=== PATIENT | male | born 1990 | race Asian ===

== ENCOUNTER 2020-04-06 11:14 | Emergency (ER) | payer BC ==
[~2020-04-06] VITALS: Ht 170.2 cm; Wt 83.9 kg
--- NOTE | 2020-04-06 11:24 | NUR ---
Placed in room 3 . Placed on bus monitor, blood pressure machine and pulse oximeter. To gown for exam. Side rails up.
[2020-04-06 11:26] VITALS: BP_SYST 123
--- NOTE | 2020-04-06 11:30 | NUR ---
Jose rodriguez in [facility] - 04/06/20 at 1133 by KLAUDIA BESSY done and given to
--- NOTE | 2020-04-06 11:32 | NUR ---
EKG done and given to
--- NOTE | 2020-04-06 11:33 | NUR ---
ER at bedside examining patient.
--- NOTE | 2020-04-06 11:48 | NUR ---
# 18 gauge angiocath placed to LAC. Use of asceptic technique. Opsite placed over site. Blood return noted. Blood for lab drawn from site. Flushed with 10 cc of normal saline. No evidence of infiltration noted. Patient tolerated well.
--- NOTE | 2020-04-06 11:48 | NUR ---
Patient transported to radiology via gurney, accompanied by x-ray tech.
[2020-04-06 11:58] LABS: EOSINOPHILS % (AUTO) 1.2 % (0.0-4.0); HEMATOCRIT 43.7 % (36-54); HEMOGLOBIN 15.1 g/dL (14.0-18.0); LYMPHOCYTES % (AUTO) 31.6 % (20.5-51.5); MEAN CORPUSCULAR HEMOGLOBIN 31 pg (27-31); MEAN CORPUSCULAR HGB CONC 35 % (32-36); MEAN CORPUSCULAR VOLUME 91 fL (79.0-98.0); MONOCYTES % (AUTO) 6.9 % (1.7-9.3); NEUTROPHILS # (AUTO) 3.3 K/uL (1.8-7.7); NEUTROPHILS % (AUTO) 59.3 % (40.0-70.0); PLATELET COUNT (AUTO) 184 K/uL (130-430); RED BLOOD CELL COUNT(AUTO) 4.83 MIL/uL (4.2-6.2); RED CELL DISTRIBUTION WIDTH 13.3 % (9.0-15.0); WHITE BLOOD COUNT (AUTO) 5.6 K/uL (4.8-10.8)
[2020-04-06 11:59] LABS: BASOPHILS # (AUTO) 0.1 K/uL (0.0-0.2); EOSINOPHILS # (AUTO) 0.1 K/uL (0.0-0.4); LYMPHOCYTES # (AUTO) 1.8 K/uL (1.0-5.5); MONOCYTES # (AUTO) 0.4 K/uL (0.0-1.0)
[2020-04-06 12:11] LABS: CALCIUM 9.4 mg/dL (8.4-11.0); CREATININE 1.01 mg/dL (0.55-1.30)
[2020-04-06 12:16] LABS: ALBUMIN 4.1 g/dL (3.4-4.8); TOTAL BILIRUBIN 0.7 mg/dL (0.0-1.0)
--- NOTE | 2020-04-06 12:29 | NUR ---
Patient given written and verbal discharge instructions and verbalizes understanding. ER MD discussed with patient the results and treatment provided. Patient in stable condition. ID arm band removed. Patient educated on pain management and to follow up with PMD. Pain Scale 3/10. Opportunity for questions provided and answered. Medication side effect fact sheet provided.
[2020-04-06 12:34] VITALS: BP_SYST 123
== END 2020-04-06 12:28 | disposition home or self-care (01) ==
LOC: SED 11:14
DX: R07.89 Other chest pain (principal)
CPT/HCPCS: 36415; 71045; 80053; 84484; 85025; 93005; 99285